=== PATIENT | male | born 1950 | race Caucasian/White ===

== ENCOUNTER 2016-10-03 11:54 | Emergency (ER) | payer OTHER ==
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
[2016-10-03] MEDS ORDERED: 0.9 % SODIUM CHLORIDE 1,000 ML BAG IV ONE (13:10)
[2016-10-03] MEDS ORDERED: ONDANSETRON HCL IV 4 MG/2 ML VIAL IV ONE (13:10)
[2016-10-03 13:30] LABS: BASO % 0.4 % (0-6); EOS % 0.1 % (0-6); GRAN % 74.5 % (47-80); HEMATOCRIT 40.4 % (42.0-52.0); HEMOGLOBIN 13.5 gm/dl (14.0-18.0); LYMPH % 16.4 % (16-45); MEAN CELL VOLUME 98.5 fl (81-97); MEAN CORPUSCULAR HEMOGLOBIN 32.9 pg (27-33); MEAN CORPUSCULAR HGB CONC 33.4 g/dl (32-36); MEAN PLATELET VOLUME 9.1 fl (7.4-10.4); MONO % 8.6 % (0-9); PLATELET COUNT 178 K/uL (130-400); RED CELL DISTRIBUTION WIDTH 12.4 % (11.5-14.5); WHITE BLOOD COUNT W/O DIFF 8.2 K/uL (4.2-12.2)
[2016-10-03 13:42] LABS: ALBUMIN 3.9 gm/dL (3.5-5.0); ALKALINE PHOSPHATASE 87 U/L (38-126); ALT/SGPT 24 U/L (21-72); ANION GAP 8.8 (7-16); AST/SGOT 22 U/L (17-59); BILIRUBIN,TOTAL 0.75 mg/dL (0.2-1.3); BLOOD UREA NITROGEN 14 mg/dL (9-20); CARBON DIOXIDE 23.2 mmol/L (22-30); EST GLOMERULAR FILTRATION RATE > 60 ml/min; GLUCOSE,RANDOM 99 mg/dL (70-110); LIPASE 27 U/L (23-300); TOTAL PROTEIN 6.7 gm/dL (6.3-8.2)
[2016-10-03] MEDS ORDERED: HYDROCODONE/APAP 7.5/325MG TABLET PO ONE (14:55)
--- NOTE | 2016-10-03 17:52 | Emergency Department Record ---
History of Present Illness - General Chief complaint: Nausea, Vomiting, Diarrhea Stated complaint: N/V/FAIR Time Seen by Provider: 10/03/16 12:53 Source: Patient, RN notes reviewed Mode of Arrival: Ambulatory - History of Present Illness Description of Vomiting: Food contents Radiation: None Worsens with: Eating Associated Symptoms: Headaches - Related Data Home Medications Medication Instructions Recorded Confirmed Last Taken Cephalexin [Keflex] 500 mg PO Q6HR 10/03/16 10/03/16 Unknown Docusate Sodium [Colace] 200 mg PO BID 10/03/16 10/03/16 Unknown Ergocalciferol (Vitamin D2) 50,000 units PO MONTHLY 10/03/16 10/03/16 Unknown [Vitamin D2] Hydrocodone/Acetaminophen 5 mg PO Q4HR PRN 10/03/16 10/03/16 Unknown [Hydrocodon-Acetaminophen 5-325] Morphine Sulfate 15 mg PO BID 10/03/16 10/03/16 Unknown Oxybutynin [Oxytrol] 5 mg PO DAILY 10/03/16 10/03/16 Unknown Oxycodone HCl 5 mg PO Q4HR PRN 10/03/16 10/03/16 Unknown Phenazopyridine HCl [Azo Urinary 97.5 mg PO TID PRN 10/03/16 10/03/16 Unknown Pain Relief] Sennosides/Docusate Sodium 1 tab PO BID 10/03/16 10/03/16 Unknown [Docusate Sodium-Senna Tablet] Sildenafil Citrate [Viagra] 50 mg PO DAILY PRN 10/03/16 10/03/16 Unknown Simvastatin 40 mg PO DAILY 10/03/16 10/03/16 Unknown Sulfamethoxazole/Trimethoprim 1 tab PO BID 10/03/16 10/03/16 Unknown [Bactrim Ds Tablet] Previous Rx's Medication Instructions Recorded Ondansetron HCl [Zofran] 4 mg PO Q6HR #8 tablet 10/03/16 Allergies Allergy/AdvReac Type Severity Reaction Status Date / Time niacin Allergy PT UNSURE Verified 10/03/16 12:17 OF REACTION Travel Screening - Travel/Exposure Within Last 30 Days Have you traveled within the last 30 days?: No - Travel/Exposure Within Last Year Have you traveled outside the [place] in the last year?: No - Additonal Travel Details Have you been exposed to anyone with a communicable illness?: No - Travel Symptoms Symptom Screening: None Review of Systems Constitutional: Reports: As per HPI. Denies: Chills, Fever, Malaise, Night sweats, Weakness, Weight change Eyes: Reports: As per HPI. Denies: Eye discharge, Eye pain, Photophobia, Vision change ENT: Reports: As per HPI. Denies: Congestion, Dental pain, Ear pain, Epistaxis , Hearing loss, Throat pain Respiratory: Reports: As per HPI. Denies: Cough, Dyspnea, Hemoptysis, Stridor, Wheezes Cardiovascular: Reports: As per HPI. Denies: Arrhythmia, Chest pain, Dyspnea on exertion, Edema, Murmurs, Orthopnea, Palpitations, Paroxysmal nocturnal dyspnea, Rheumatic Fever, Syncope Endocrine: Reports: As per HPI. Denies: Fatigue, Heat or cold intolerance, Polydipsia, Polyuria Gastrointestinal: Reports: As per HPI, Nausea, Vomiting. Denies: Abdominal pain , Constipation, Diarrhea, Hematemesis, Hematochezia, Melena Genitourinary: Reports: As per HPI. Denies: Dysuria, Frequency, Hematuria, Incontinence, Retention, Testicular pain, Testicular mass, Urgency Musculoskeletal: Reports: As per HPI. Denies: Arthralgia, Back pain, Gout, Joint swelling, Myalgia, Neck pain Skin: Reports: As per HPI. Denies: Bruising, Change in color, Change in hair/ nails, Lesions, Pruritus, Rash Neurological: Reports: As per HPI, Headache. Denies: Abnormal gait, Confusion, Numbness, Paresthesias, Seizure, Tingling, Tremors, Vertigo, Weakness Psychiatric: Reports: As per HPI. Denies: Anxiety, Auditory hallucinations, Depression, Homicidal thoughts, Suicidal thoughts, Visual hallucinations Hematological/Lymphatic: Reports: As per HPI. Denies: Anemia, Blood Clots, Easy bleeding, Easy bruising, Swollen glands Past Medical History - SOCIAL HISTORY Smoking Status: Heavy tobacco smoker (>10/day) Alcohol Use: None Drug Use Detail:: Marijuana - RESPIRATORY Hx Respiratory Disorders: No - CARDIOVASCULAR Hx Cardio Disorders: No - NEURO Hx Neuro Disorders: No - GI Hx Ulcer: Yes (duodenal ulcer 2013) - Hx Genitourinary Disorders: Yes Hx Bladder Problem: Yes (tumor removal 05/2016) - ENDOCRINE Hx Endocrine Disorders: No - MUSCULOSKELETAL Hx Musculoskeletal Disorders: Yes Hx Arthritis: Yes - PSYCH Hx Psych Problems: No - HEMATOLOGY/ONCOLOGY Hx Hematology/Oncology Disorders: Yes Hx Cancer: Yes (bladder 2017) Hx Chemotherapy: No Hx Radiation Therapy: No Family Medical History Any Significant Family History?: No Hx Cancer: Father *Cancer Comment: father had brain cancer Hx Diabetes: Mother, Brother/Sister Hx Stroke: Mother Course Vital Signs 10/03/16 10/03/16 10/03/16 11:58 13:29 15:14 Temperature 97.3 F L 98.9 F Pulse Rate 84 Pulse Rate [ 84 95 H Pulse Ox Probe] Respiratory 20 20 20 Rate Blood Pressure 128/64 Blood Pressure 126/80 121/78 [Left Arm] Pulse Ox 98 98 97 10/03/16 15:24 Temperature 98.9 F Pulse Rate 95 H Pulse Rate [ Pulse Ox Probe] Respiratory 20 Rate Blood Pressure 121/78 Blood Pressure [Left Arm] Pulse Ox 97 Medical Decision Making - Lab Data Result diagrams: 10/03/16 13:17 10/03/16 13:17 Lab Results 10/03/16 10/03/16 Range/Units 13:17 13:17 WBC 8.2 (4.2-12.2) K/uL RBC 4.10 L (4.40-5.70) M/uL Hgb 13.5 L (14.0-18.0) gm/dl Hct 40.4 L (42.0-52.0) % MCV 98.5 H (81-97) fl MCH 32.9 (27-33) pg MCHC 33.4 (32-36) g/dl RDW 12.4 (11.5-14.5) % Plt Count 178 (130-400) K/uL MPV 9.1 (7.4-10.4) fl Gran % 74.5 (47-80) % Lymphocytes % 16.4 (16-45) % Monocytes % 8.6 (0-9) % Eosinophils % 0.1 (0-6) % Basophils % 0.4 (0-6) % Sodium 135 L (136-145) mmol/L Potassium 3.9 (3.5-5.1) mmol/L Chloride 103 (98-107) mmol/L Carbon Dioxide 23.2 (22-30) mmol/L Anion Gap 8.8 (7-16) BUN 14 (9-20) mg/dL Creatinine 1.0 (0.66-1.25) mg/dL Estimated GFR > 60 ml/min Random Glucose 99 (70-110) mg/dL Calcium 8.8 (8.5-10.1) mg/dL Total Bilirubin 0.75 (0.2-1.3) mg/dL Direct Bilirubin 0.0 (0-0.3) mg/dL AST 22 (17-59) U/L ALT 24 (21-72) U/L Alkaline Phosphatase 87 (38-126) U/L Total Protein 6.7 (6.3-8.2) gm/dL Albumin 3.9 (3.5-5.0) gm/dL Lipase 27 (23-300) U/L Disposition Clinical Impression: Headache, Viral syndrome Disposition: Home, Self-Care Condition: (1) Good Instructions: Migraine Headache (ED), Acute Nausea and Vomiting (ED) Additional Instructions: follow up with [facility] or family Dr in 2 days continue pain meds Prescriptions: Ondansetron HCl [Zofran] 4 mg PO Q6HR #8 tablet Forms: Patient Portal Access Time of Disposition: 17:52
== END 2016-10-03 15:24 | disposition home or self-care (01) ==
LOC: ER 11:54
DX: R51 Headache (principal); B34.9 Viral infection, unspecified; R11.2 Nausea with vomiting, unspecified; R19.7 Diarrhea, unspecified; C67.9 Malignant neoplasm of bladder, unspecified
CPT/HCPCS: 99284 ×2; 96374; 96361; 83690; 85025; 80076; 80048; 70450; J2405; J7030